=== PATIENT | male | born 1960 | race Caucasian/White ===

== ENCOUNTER 2021-05-02 09:32 | Inpatient (IN) | payer SELFPAY ==
[~2021-05-02] VITALS: Ht 177.8 cm; Wt 105.2 kg
[2021-05-02] MEDS ORDERED: DEXAMETHASONE SOD PHOS 10 MG/ML VIAL. IVP ONE (10:15)
[2021-05-02] MEDS ORDERED: IV NORMAL SALINE 1,000ML 1,000 ML IV SCH (10:15)
--- NOTE | 2021-05-02 10:25 | PHYS DOC ---
Past History Past Surgical History: No Surgical History (SAMANTHA PHAM APRN) Alcohol Use: None (SAMANTHA PHAM APRN) General Adult EDM: Chief Complaint: SHORTNESS OF BREATH HPI: HPI: Patient is a 60-year-old male who presents to the emergency department for multiple complaints. Patient was diagnosed with COVID-19 last week. He has been taking a Z-Bony, prednisone, Mucinex and Tessalon Perles. He reports that he has had increasing shortness of breath since his diagnosis along with nausea, vomiting, decreased appetite, loss of taste, nonproductive cough and generalized chest wall pain with deep inspiration. Patient denies any fevers. He has no medical history. Patient is hypoxic and requiring 3 L via nasal cannula, 82% on room air. (SAMANTHA PHAM APRN) Review of Systems: Review of Systems: Constitutional: negative unless reported in HPI Eyes: negative unless reported in HPI HENT: negative unless reported in HPI Respiratory: negative unless reported in HPI Cardiovascular: negative unless reported in HPI GI: negative unless reported in HPI : negative unless reported in HPI Musculoskeletal: negative unless reported in HPI Integument: negative unless reported in HPI Neurologic: negative unless reported in HPI Endocrine: negative unless reported in HPI Lymphatic: negative unless reported in HPI Psychiatric: negative unless reported in HPI (SAMANTHA PHAM APRN) Current Medications: Current Meds: Current Medications Medications (Trade) Dose Ordered Sig/Rosa Start Time Stop Time Status Last Admin Dose Admin Dexamethasone Sodium Phosphate (Decadron) 10 mg 1X ONCE 05/02/21 10:15 05/02/21 10:16 UNV Sodium Chloride 1,000 ml @ 1,000 mls/hr Q1H 05/02/21 10:15 05/02/21 11:14 UNV (SAMANTHA PHAM APRN) Allergies: Allergies: Allergies Coded Allergies Type Severity Reaction Last Updated Verified No Known Drug Allergies 05/02/21 No (SAMANTHA PHAM APRN) Physical Exam: PE: Constitutional: Well developed, well nourished, no acute distress, non-toxic appearance. [] HENT: Normocephalic, atraumatic, bilateral external ears normal, oropharynx moist, no oral exudates, nose normal. [] Eyes: PERRL, EOMI, conjunctiva normal, no discharge. [] Neck: Normal range of motion, no tenderness, supple, no stridor. [] Cardiovascular:Heart rate regular rhythm, no murmur, generalized chest wall tenderness with deep inspiration [] Lungs & Thorax: Scattered crackles throughout Abdomen: Bowel sounds normal, soft, no tenderness, no masses, no pulsatile masses. [] Skin: Warm, dry, no erythema, no rash. [] Back: Normal range of motion Extremities: No tenderness, no cyanosis, no clubbing, ROM intact, no edema. [] Neurologic: Alert and oriented X 3, normal motor function, normal sensory function, no focal deficits noted. [] Psychologic: Affect normal, judgement normal, mood normal. [] (SAMANTHA PHAM APRN) Current Patient Data: Labs: Laboratory Tests Test 05/02/21 10:30 White Blood Count 12.6 x10^3/uL Red Blood Count 4.69 x10^6/uL Hemoglobin 13.5 g/dL Hematocrit 41.5 % Mean Corpuscular Volume 89 fL Mean Corpuscular Hemoglobin 29 pg Mean Corpuscular Hemoglobin Concent 33 g/dL Red Cell Distribution Width 14.3 % Platelet Count 270 x10^3/uL Neutrophils (%) (Auto) 81 % Lymphocytes (%) (Auto) 7 % Monocytes (%) (Auto) 11 % Eosinophils (%) (Auto) 0 % Basophils (%) (Auto) 0 % Neutrophils # (Auto) 10.2 x10^3uL Lymphocytes # (Auto) 0.9 x10^3/uL Monocytes # (Auto) 1.4 x10^3/uL Eosinophils # (Auto) 0.0 x10^3/uL Basophils # (Auto) 0.0 x10^3/uL Sodium Level 137 mmol/L Potassium Level 4.1 mmol/L Chloride Level 99 mmol/L Carbon Dioxide Level 30 mmol/L Anion Gap 8 Blood Urea Nitrogen 28 mg/dL Creatinine 1.1 mg/dL Estimated GFR (Cockcroft-Gault) 68.5 BUN/Creatinine Ratio 25 Glucose Level 103 mg/dL Calcium Level 8.5 mg/dL Total Bilirubin 1.0 mg/dL Aspartate Amino Transf (AST/SGOT) 36 U/L Alanine Aminotransferase (ALT/SGPT) 32 U/L Alkaline Phosphatase 54 U/L Troponin I High Sensitivity 9 ng/L Total Protein 7.6 g/dL Albumin 3.2 g/dL Albumin/Globulin Ratio 0.7 Current Medications Medications (Trade) Dose Ordered Sig/Rosa Route PRN Reason Start Time Stop Time Status Last Admin Dose Admin Sodium Chloride 1,000 ml @ 1,000 mls/hr Q1H IV 05/02/21 10:15 05/02/21 11:14 DC 05/02/21 10:52 Dexamethasone Sodium Phosphate (Decadron) 10 mg 1X ONCE IVP 05/02/21 10:15 05/02/21 10:23 DC 05/02/21 10:52 Vital Signs: Vital Signs Date Time Temp Pulse Resp B/P (MAP) Pulse Ox O2 Delivery O2 Flow Rate FiO2 05/02/21 09:57 98.9 76 134/64 (87) 94 Room Air (SAMANTHA PHAM APRN) EKG: EKG: [] EKG performed by ER staff at 1026 shows sinus rhythm with a rate of 80, QTc of 419, no STEMI read by Dr. Cody at 1032 (SAMANTHA PHAM APRN) Radiology/Procedures: Radiology/Procedures: []PROCEDURE: PORTABLE CHEST 1V EXAM: Chest, single view. HISTORY: Shortness of air. COMPARISON: None. FINDINGS: Frontal views of the chest are obtained. There is diffuse right greater than left lung interstitial and alveolar infiltrate. There is no pleural effusion or pneumothorax. The heart is normal in size. IMPRESSION: Diffuse right greater than left lung infiltrate. Follow-up to confirm resolution. Electronically signed by: Natalie Santos MD (05/02/2021 10:28 AM) [facility] DICTATED AND SIGNED BY: NATALIE SANTOS MD DATE: 05/02/21 1027 CC: SAMANTHA PHAM APRN; PCP,NO ~MTH0 0 (SAMANTHA PHAM APRN) Heart Score: C/O Chest Pain: No Risk Factors: Risk Factors: DM, Current or recent (<one month) smoker, HTN, HLP, family history of CAD, obesity. Risk Scores: Score 0 - 3: 2.5% MACE over next 6 weeks - Discharge Home Score 4 - 6: 20.3% MACE over next 6 weeks - Admit for Clinical Observation Score 7 - 10: 72.7% MACE over next 6 weeks - Early Invasive Strategies (SAMANTHA PHAM APRN) Course & Med Decision Making: Course & Med Decision Making Pertinent Labs and Imaging studies reviewed. (See chart for details) [] Patient presents to the emergency department for increasing shortness of breath, nausea, vomiting, loss of taste, decreased appetite, chest wall tenderness with deep inspiration and cough after being diagnosed with Covid last week. Patient is hypoxic and requiring 3 L via nasal cannula. His room air oxygen saturation was 82%. Patient has already taken a Z-Bony, prednisone, Mucinex and Tessalon Perles. Work-up in the ER consisted of blood work, EKG, chest x-ray to rule out pneumonia. Patient treated with IV steroids and fluids. Patient had to be titrated up to 4 L via nasal cannula and his oxygen saturation is 94%. CBC shows mild leukocytosis with a white blood cell count of 12.6, BUNs 28. Remainder of patient's lab work is unremarkable. Chest x-ray does show bilateral pneumonia. Patient will be treated with IV antibiotics. Due to shandra richard's hypoxia and need for oxygen, he will need to be admitted to the hospital for Covid pneumonia and hypoxia. I discussed these findings with patient and care plan he is agreeable to them. Discussed patient's case with Dr. Arce who agreed to admit patient under his services. ER bridge orders placed at this time 1133. (SAMANTHA PHAM APRN) Dragon Disclaimer: Marina Disclaimer: This electronic medical record was generated, in whole or in part, using a voice recognition dictation system. (SAMANTHA PHAM APRN) Attending Co-Sign The patient was seen and interviewed as well as examined at the bedside. The chart was reviewed. The case was discussed. Agree with the plan of care. (LIANG CODY DO) Departure Departure: Impression: Primary Impression: Pneumonia due to COVID-19 virus Additional Impression: Hypoxia Disposition: ADMITTED INPATIENT Admitting Physician: Tequila Arce (SAMANTHA PHAM APRN) Condition: STABLE Referrals: PCP,NO (PCP) SAMANTHA PHAM APRN May 02, 2021 10:25 LIANG CODY DO May 03, 2021 06:32
--- NOTE | 2021-05-02 10:30 | RAD ---
EXAM: Chest, single view. HISTORY: Shortness of air. COMPARISON: None. FINDINGS: Frontal views of the chest are obtained. There is diffuse right greater than left lung inte rstitial and alveolar infiltrate. There is no pleural effusion or pneumothorax. The heart is normal i n size. IMPRESSION: Diffuse right greater than left lung infiltrate. Follow-up to confirm resolution. Electronically signed by: Natalie Smith MD (05/02/2021 10:28 AM) [facility]
--- NOTE | 2021-05-02 10:37 | EKG ---
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 SYSTEM ADMINISTRATOR by Deric Carrillo
[2021-05-02 10:56] LABS: BASO % 0 % (0-3); EOS % 0 % (0-3); HEMATOCRIT 41.5 % (39.0-53.0); HEMOGLOBIN 13.5 g/dL (13.0-17.5); LYMPH # 0.9 x10^3/uL (1.0-4.8); LYMPH % 7 % (24-48); MEAN CORPUSCULAR HEMOGLOBIN 29 pg (25-35); MEAN CORPUSCULAR HGB CONC 33 g/dL (31-37); MEAN CORPUSCULAR VOLUME 89 fL (79-100); MONO # 1.4 x10^3/uL (0.0-1.1); MONO % 11 % (0-9); NEUT # 10.2 x10^3uL (1.8-7.7); NEUT % 81 % (31-73); PLATELET COUNT 270 x10^3/uL (140-400); RED BLOOD COUNT 4.69 x10^6/uL (4.30-5.70); RED CELL DISTRIBUTION WIDTH 14.3 % (11.5-14.5); WHITE BLOOD COUNT 12.6 x10^3/uL (4.0-11.0)
[2021-05-02 11:06] LABS: CALCIUM 8.5 mg/dL (8.5-10.1); CREATININE 1.1 mg/dL (0.7-1.3); GFR 68.5; POTASSIUM 4.1 mmol/L (3.5-5.1)
[2021-05-02 11:12] LABS: ALBUMIN 3.2 g/dL (3.4-5.0); ALBUMIN/GLOBULIN RATIO 0.7 (1.0-1.7); TOTAL PROTEIN 7.6 g/dL (6.4-8.2)
[2021-05-02] MEDS ORDERED: AZITHROMYCIN 500 MG in IV NORMAL SALINE 250ML 250 ML IV ONE (11:30)
[2021-05-02] MEDS ORDERED: cefTRIAXone SODIUM 1 GM VIAL ONE (13:13)
[2021-05-02] MEDS ORDERED: AZITHROMYCIN 500 MG VIAL. IV ONE (13:13)
[2021-05-02] MEDS ORDERED: IV NORMAL SALINE 250ML 250 ML ONE ×2 (13:13)
[2021-05-02] MEDS ORDERED: IV NORMAL SALINE 50ML 50 ML ONE (13:13)
[2021-05-02 14:48] VITALS: BP 115/72
--- NOTE | 2021-05-02 15:25 | HP ---
DATE OF SERVICE: 05/02/2021 ADMIT DATE: 05/02/2021 HISTORY OF PRESENT ILLNESS: The patient is a 60-year-old male patient who presented to the Emergency Room with multiple complaints. He was diagnosed with COVID-19 last week. He has been taking a Z-DIDIER and prednisone, Mucinex and Tessalon Perles. He reports that he has had increasing shortness of breath since his diagnosis along with nausea, vomiting, decreased appetite, loss of taste, nonproductive cough, and generalized chest wall pain with deep inspiration. He denied any fever, has no medical history. On arrival, he was hypoxic with oxygen saturation of only 82% on room air, that has improved on 3 liters to 95%. He was extensively investigated in the Emergency Room and has had lab work as well as imaging studies. His lab work showed that his white cell count was slightly elevated at 12,600. His chemistry was mostly unremarkable, and his chest x-ray showed that the patient has diffuse right greater than left lung infiltrate, and there is no pleural effusion or pneumothorax. The heart is normal in size. The patient was admitted with COVID-19 pneumonia, acute hypoxic respiratory failure. He was treated with IV ceftriaxone and dexamethasone, and was admitted for further evaluation and treatment. PAST MEDICAL HISTORY: Unremarkable. PAST SURGICAL HISTORY: Unremarkable. ALLERGIES: He has no known drug allergies. MEDICATIONS: He is currently on no medication except the one prescribed at an urgent care. FAMILY HISTORY: He has one brother, younger, and apparently healthy. His mother at age of 73 because of complication of diabetes and father at age of 79 because of stomach cancer. SOCIAL HISTORY: He is , and currently lives with his girlfriend. He was vaccinated. He quit smoking 6 years ago. He smoked for more than 40 years. He drinks alcohol occasionally. He does not use any drugs. 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 REVIEW OF SYSTEMS: As per history of present illness. PHYSICAL EXAMINATION: GENERAL: On arrival to the Emergency Room, the patient was somewhat tachypneic, but there is no pallor, jaundice, or cyanosis. No lymphadenopathy, no thyromegaly, no jugular venous distention. No lower limb edema. VITAL SIGNS: His heart rate was 76, blood pressure was 134/64, temperature was 98.9, respiratory rate was 20, and oxygen saturation was 94% on 3 liters of oxygen. HEAD, EYES, EARS, NOSE, AND THROAT: Showed normocephalic, atraumatic. NECK: Supple. HEART: Showed normal first and second heart sounds. No gallop or murmur. CHEST: Shows central trachea, equal bilateral expansion, air entry, vesicular breath sounds with crepitation mostly on the right side and to a lesser extent the left side. I could not appreciate any rhonchi. ABDOMEN: Distended, soft, nontender. NEUROLOGIC: He was grossly intact. LABORATORY DATA: His lab work showed a serum sodium of 137, potassium 4.1, chloride 99, bicarbonate 30, anion gap of 8, BUN 28, creatinine 1.1. Estimated GFR was 68 mL per minute. His glucose was 103, calcium was 8.5. Total bilirubin, AST, ALT, alkaline phosphatase were normal. His troponin I high sensitivity was 9. Total protein 7.6, albumin was 3.2. His white cell count was 12,600, hemoglobin 13.5, hematocrit 41, MCV 89 and platelet count 270,000 with normal manual differential. ASSESSMENT: COVID-19 pneumonia, possible superimposed community-acquired pneumonia, acute hypoxic respiratory failure. SHOAIB DR: Sophie TID: [id number]
--- NOTE | 2021-05-02 16:02 | NUR ---
admission note Pt admitted to room 103 for covid + status at 1430 from ed via ems
[2021-05-02] MEDS: ENOXAPARIN 40 MG/0.4 ML SYRINGE. SQ SCH (16:59)
[2021-05-02] MEDS: ASCORBIC ACID 1,000 MG TABLET PO SCH (17:00)
[2021-05-02] MEDS: ZINC SULFATE 220 MG CAPSULE. PO SCH (17:00)
[2021-05-02 19:00] VITALS: BP 124/72
[2021-05-02] MEDS: LACTOBACILLUS RHAMNOSUS GG 1 CAPSULE. PO SCH (22:30)
[2021-05-02 23:00] VITALS: BP 129/72
[2021-05-03 05:00] VITALS: BP 137/74
[2021-05-03 07:39] LABS: BASO % 0 % (0-3); EOS % 0 % (0-3); HEMATOCRIT 38.8 % (39.0-53.0); HEMOGLOBIN 12.7 g/dL (13.0-17.5); LYMPH # 0.8 x10^3/uL (1.0-4.8); LYMPH % 7 % (24-48); MEAN CORPUSCULAR HEMOGLOBIN 28 pg (25-35); MEAN CORPUSCULAR HGB CONC 33 g/dL (31-37); MEAN CORPUSCULAR VOLUME 86 fL (79-100); MONO # 1.3 x10^3/uL (0.0-1.1); MONO % 13 % (0-9); NEUT # 8.6 x10^3uL (1.8-7.7); NEUT % 80 % (31-73); PLATELET COUNT 290 x10^3/uL (140-400); RED BLOOD COUNT 4.49 x10^6/uL (4.30-5.70); RED CELL DISTRIBUTION WIDTH 14.2 % (11.5-14.5); WHITE BLOOD COUNT 10.7 x10^3/uL (4.0-11.0)
[2021-05-03 07:57] LABS: ALBUMIN 2.8 g/dL (3.4-5.0); ALBUMIN/GLOBULIN RATIO 0.6 (1.0-1.7); CALCIUM 8.3 mg/dL (8.5-10.1); CREATININE 0.9 mg/dL (0.7-1.3); GFR 86.4; POTASSIUM 3.9 mmol/L (3.5-5.1); TOTAL BILIRUBIN 0.7 mg/dL (0.2-1.0); TOTAL PROTEIN 7.7 g/dL (6.4-8.2)
[2021-05-03] MEDS: ZINC SULFATE 220 MG CAPSULE. PO SCH (08:50)
[2021-05-03] MEDS: LACTOBACILLUS RHAMNOSUS GG 1 CAPSULE. PO SCH (08:50)
[2021-05-03] MEDS: ASCORBIC ACID 1,000 MG TABLET PO SCH (08:50)
[2021-05-03] MEDS ORDERED: DEXAMETHASONE SOD PHOS 4 MG/ML VIAL. IVP SCH (09:00)
[2021-05-03] MEDS ORDERED: AZITHROMYCIN 250 MG TABLET. PO SCH (09:00)
[2021-05-03 11:07] VITALS: BP 139/75
[2021-05-03] MEDS ORDERED: IPRATRPIUM/ALBUTEROL 0.5/2.5MG 3 ML NEBU. NEB PRN (15:15)
[2021-05-03] MEDS: ENOXAPARIN 40 MG/0.4 ML SYRINGE. SQ SCH (15:15)
[2021-05-03] MEDS ORDERED: BUDESONIDE 0.5 MG/2 ML NEBU NEB PRN (15:15)
[2021-05-03 15:25] VITALS: BP 128/75
--- NOTE | 2021-05-03 19:21 | NUR ---
nursing note Pt discharged at 1920 via ems to [facility] room 665 .
--- NOTE | 2021-05-03 21:55 | PN ---
DATE: 05/03/2021 SUBJECTIVE: The patient is resting, slightly propped up in bed. He does not seem to be really in any respiratory distress. He does have recurrent bouts of cough more so this morning according to nursing staff. PHYSICAL EXAMINATION: GENERAL: When I saw him, he was resting, propped up with no pallor, jaundice, cyanosis or thyromegaly. No jugular venous distention. No lower limb edema. VITAL SIGNS: His heart rate was 93, blood pressure was 139/75, temperature 97.6, respiratory rate was 18 and oxygen saturation was 93% on 3 liters of oxygen. HEAD, EYES, EARS, NOSE, AND THROAT: Showed normocephalic, atraumatic. NECK: Supple. HEART: Showed normal first and second heart sounds. No gallop, rub or murmur. CHEST: Showed central trachea, equal bilateral chest expansion, air entry, vesicular breath sounds with bilateral basal crepitation. I could not appreciate any rhonchi. ABDOMEN: Distended, soft, nontender. NEUROLOGIC: He was grossly intact. His intake and output was incompletely recorded. LABORATORY DATA: This morning showed a white cell count of 10,700, hemoglobin 13, hematocrit 39, MCV 86 and platelet count 290,000. His chemistry showed a serum sodium 137, potassium 3.9, chloride 102, bicarbonate 25, anion gap of 10, BUN 30, creatinine was 0.9. Estimated GFR was 86 mL per minute. His glucose 108, calcium was 8.3. Total bilirubin, AST, ALT, alkaline phosphatase were normal. Troponin I high sensitivity was 9. C-reactive protein was 83. Total protein 7.7, albumin was 2.8. His D-dimer was 0.97. ASSESSMENT: 1. COVID-19 pneumonia. 2. Possible superimposed community-acquired pneumonia. 3. Acute hypoxic respiratory failure. The patient's oxygen requirement is steadily rising and now he is on 10 liters of oxygen, maintaining his oxygen saturation at 90-91%. PLAN: To continue with all the antibiotics. Continue with dexamethasone. Continue with Lovenox. I will arrange for him to repeat his labs and chest x-ray tomorrow and decide on further management accordingly. [place] DR: Sophie TID: [id number]
== END 2021-05-03 19:24 | disposition short-term general hospital (02) | DRG 177 ==
LOC: ER 09:32 → 1 SOUTH 11:24
PROVIDERS: ADMIT Internal Medicine; ATTEND Internal Medicine
PROC: 5A0935A Assistance with Respiratory Ventilation, Less than 24 Consecutive Hours, High Flow/Velocity Cannula (ICD-10-PCS; principal; 2021-05-03)
DX: U07.1 COVID-19 (principal); J12.82 Pneumonia due to coronavirus disease 2019; J96.01 Acute respiratory failure with hypoxia; Z80.0 Family history of malignant neoplasm of digestive organs; Z83.3 Family history of diabetes mellitus; Z87.891 Personal history of nicotine dependence
CPT/HCPCS: 36415; 71045; 80053; 84484; 85025; 85379; 86140; 93005; 94640; 96361; 96365; 96375; J0696; J1100; J1650; U0003; 99285-25; J7030